=== PATIENT | male | born 1955 | race Caucasian/White ===

== ENCOUNTER 2018-07-17 19:51 | Emergency (ER) | payer MEDICARE ==
[~2018-07-17] VITALS: Ht 185.4 cm; Wt 108.9 kg
[~2018-07-17 19:51] MED LIST: ATENOLOL50 MG PO; AUGMENTIN 875-1 EACH PO; CARAFATE1 GM/10 ML PO; GABAPENTIN100 MG PO; HYDROCODONE-IB1 EAC2; KEFLEX250 MG; KEFLEX500 MG PO; PANTOPRAZOLE SO40 MG PO; RANITIDINE HCL150 MG PO; SUCRALFATE1 GM PO; ULTRAM50 MG PO; VICOPROFEN 2001 EACH PO
--- OUTSIDE RECORDS SUMMARY | 2018-07-17 19:54 | XMS REPORT ---
Author Author [facility] Address Unknown Phone Unavailable Care Team Providers Care Cafe Server Name Role Phone Ray JIMENEZ Unavailable Unavailable Payers Payer Name Policy Type Policy Number Effective Date Expiration Date Problems This patient has no known problems. Allergies, Adverse Reactions, Alerts Allergy Name Allergy Type Status Severity Reaction(s) Onset Date Inactive Date Treating Clinician Comments bismuth subsalicylate DA Active 2018-06-17 00:00:00 propoxyphene DA Active SV 2018-06-17 00:00:00 aspirin DA Active SV 2018-06-17 00:00:00 methylprednisolone DA Active U 2018-06-17 00:00:00 tramadol DA Active SV 2018-06-17 00:00:00 diphenhydramine DA Active SV 2018-06-17 00:00:00 bismuth subsalicylate DA Active SV 2018-04-25 00:00:00 propoxyphene DA Active SV 2018-04-25 00:00:00 aspirin DA Active SV 2018-04-25 00:00:00 methylprednisolone DA Active U 2018-04-25 00:00:00 tramadol DA Active SV 2018-04-25 00:00:00 diphenhydramine DA Active SV 2018-04-25 00:00:00 bismuth subsalicylate DA Active SV 2017-10-14 00:00:00 propoxyphene DA Active SV 2017-10-14 00:00:00 aspirin DA Active SV 2017-10-14 00:00:00 methylprednisolone DA Active U 2017-10-14 00:00:00 tramadol DA Active SV 2017-10-14 00:00:00 diphenhydramine DA Active SV 2017-10-14 00:00:00 Medications This patient has no known medications. Results Test Description Test Time Test Comments Text Results Atomic Results Result Comments CHEST SINGLE (PORTABLE) 2018-04-16 18:47:00 [place] [address] Patient Name: NIKKO HOLLAND MR #: [id number] : 1955 Age/Sex: 63/M Req #: [id number] Adm Physician: Ordered by: BRANNON JIMENEZ MD Report #: [id number] Location: ER Room/Bed: Procedure: [id number] DX/CHEST SINGLE (PORTABLE) Exam Date: 04/16/18 Exam Time: 1824 REPORT STATUS: Signed Examination: Single AP view of the chest. COMPARISON: February 19, 2017 INDICATION: Chest pain DISCUSSION: Lines/tubes: secured entrance monitor device. Lungs: The lungs are clear. Pleura: There is no pleural effusion or pneumothorax. Heart and mediastinum: The heart and the mediastinum are unremarkable. Bones and soft tissues: No acute bony abnormalities. IMPRESSION: 1. No acute cardiopulmonary abnormalities. Signed by: Dr. Piper Anne M.D. on 04/16/2018 6:48 PM Dictated By: PIPER ANNE MD 47 Transcribed By: CHELY on 04/16/181847 COPY TO: BRANNON JIMENEZ MD KNEE LEFT THREE VIEWS 2018-04-16 18:46:00 [place] [address] Patient Name: NIKKO HOLLAND MR #: [id number] : 1955 Age/Sex: 63/M Req #: [id number] Adm Physician: Ordered by: BRANNON JIMENEZ MD Report #: [id number] Location: ER Room/Bed: Procedure: DX/KNEE LEFT THREE VIEWS Exam Date: 04/16/18 Exam Time: 1824 REPORT STATUS: Signed Exam: Left knee 3 views History: Pain Comparison: None. Findings: No fracture or malalignment. Left total knee arthroplasty. Hardware intact. No abnormal soft tissue calcification or soft tissue defect. Impression: No acute osseous abnormality Intact left total knee arthroplasty. Signed by: Dr. Piper Anne M.D. on 04/16/2018 6:47 PM Dictated By: PIPER ANNE MD 46 Transcribed By: CHELY on 04/16/181846 COPY TO: BRANNON JIMENEZ MD CT BRAIN WO 2018-04-16 18:32:00 [place] [address] Patient Name: NIKKO HOLLAND MR #: [id number] : 1955 Age/Sex: 63/M Req #: [id number] Adm Physician: Ordered by: BRANNON JIMENEZ MD Report #: [id number] Location: ER Room/Bed: Procedure: [id number] CT/CT BRAIN WO Exam Date: 04/16/18 Exam Time: 1811 REPORT STATUS: Signed History:63-year-old male with heart attack resulting in fall Comparison studies: 02/19/2017 Technique: Axial images were obtained from the skull base to the vertex. Coronal and sagittal images reconstructed from the axial data. Dose modulation, iterative reconstruction, and/or weight based adjustment of the mA/kV was utilized to reduce the radiation dose to as low as reasonably achievable. Intravenous contrast: None Findings: Scalp/skull: No abnormalities. Extra-axial spaces: No masses. No fluid collections. Brain sulci: Mildly prominent. Ventricles: Mild compensatory dilatation. No hydrocephalus. Parenchyma: No abnormal density. No masses, hemorrhage, acute or chronic cortical vascular insults. Sellar/suprasellar region: No abnormalities. Craniocervical junction: Pa tent foramen magnum. No Chiari one malformation. Incidental findings: Atherosclerotic calcifications in the carotid siphons . Impression: No acute abnormalities. Mild generalized cerebral volume loss. A preliminary report was given by Neuroradiology fellow Dr. Solorzano at 6:36 PM on 04/16/2018. I have reviewed the images and agree with findings in the preliminary report. Signed by: Dr. China St M.D. on 04/16/2018 7:43 PM Dictated By: CHINA ST MD 42 Transcribed By: CHELY on 04/16/181942 COPY TO: BRANNON JIMENEZ MD
--- OUTSIDE RECORDS SUMMARY | 2018-07-17 19:54 | XMS REPORT | Clinical Summary ---
Author Author [facility] Address Unknown Phone Unavailable Care Team Providers Care Graduate Engineer Name Role Phone Fareed Carrera DO PCP Allergies Comments Active Allergy Reactions Severity Noted Date Aspirin 05/28/2017 Diphenhydramine Hcl 05/28/2017 Morphine 05/28/2017 Tramadol 05/28/2017 Acetaminophen 05/28/2017 Medications End Date Status Medication Sig Dispensed Refills Start Date Active aspirin (ECOTRIN) 325 MG Take 325 mg 0 enteric coated tablet by mouth once 7 daily. Active cetirizine (ZyrTEC) 10 MG Take 10 mg by 0 tablet mouth daily 7 as needed. Active docusate sodium (COLACE) Take 100 mg 0 100 MG capsule by mouth 2 7 (two) times a day. Active DULoxetine (CYMBALTA) 20 Take 20 mg by 0 MG capsule mouth 2 (two) 7 times a day. Active enoxaparin (LOVENOX) 40 INJECT 0.4ML 0 mg/0.4 mL syringe SUBUTANEOUSLY 7 DAILY FOR 10 DAYS Active furosemide (LASIX) 20 mg Take 20 mg by 2 tablet mouth 2 (two) 7 times a day. Active gabapentin (NEURONTIN) Take 600 mg 0 600 mg tablet by mouth 3 7 (three) times a day. Active gabapentin (NEURONTIN) Take 100 mg 0 100 mg capsule by mouth 3 7 (three) times a day. Active HYDROcodone-acetaminophen Take 1 tablet 0 (NORCO) 10-325 mg per by mouth 7 tablet every 8 (eight) hours as needed. for pain Active keTOROlac (TORadol) 10 mg TAKE 1 TABLET 0 tablet BY MOUTH 7 EVERY 8 HOURS NEEDED PAIN SCALE 6-10 Active levoFLOXacin (LEVAQUIN) TAKE 1 TABLET 0 500 MG tablet BY MOUTH 7 EVERY DAY UNTIL FINISHED Active LORAZepam (ATIVAN) 0.5 MG Take 0.5 mg 0 tablet by mouth 7 every 8 (eight) hours as needed. for anxiety Active magnesium oxide (MAG-OX) TAKE 1 TABLET 0 400 mg tablet BY MOUTH 7 TWICE A DAY WITH MEALS. Active VIVLODEX 5 mg capsule Take 1 0 capsule by 7 mouth once daily. Active metoprolol tartrate Take 25 mg by 0 (LOPRESSOR) 25 mg tablet mouth 2 (two) 7 times a day. Active predniSONE (DELTASONE) 20 TAKE 2 0 mg tablet TABLETS BY 7 MOUTH EVERY 12 HOURS FOR 5 DAYS Active ranitidine (ZANTAC) 150 Take 150 mg 3 MG tablet by mouth 7 every 12 (twelve) hours. Active CARAFATE 100 mg/mL TAKE 2 0 suspension TEASPOONSFUL 7 BY MOUTH BEFORE MEALS AND AT BEDTIME Active sulfamethoxazole-trimetho Take 1 tablet 0 prim (BACTRIM DS) 800-160 by mouth 2 7 mg per tablet (two) times a day. Active tamsulosin (FLOMAX) 0.4 Take 0.4 mg 1 mg capsule,extended by mouth 7 release 24hr nightly. Active Problems Problem Noted Date Chronic nasal congestion 05/28/2017 Sleep apnea, obstructive 05/28/2017 Nasal septal deviation 05/28/2017 Nasal turbinate hypertrophy 05/28/2017 Encounters Care Team Description Date Type Specialty Sales, Forrest Foster MD Vasovagal syncope (Primary Dx); Right upper quadrant abdominal pain; Alcoholic intoxication without complication (HCC) 07/05/2018 Emergency Emergency Medicine after 07/16/2017 Social History Date Tobacco Use Types Packs/Day Years Used Former Smoker Comments: quit 10 years Alcohol Use Drinks/Week oz/Week Comments No Sex Assigned at Date Recorded Not on file Industry Job Start Date Occupation Not on file Not on file Not on file Travel End Travel History Travel Start No recent travel history available. Last Filed Vital Signs Time Taken Vital Sign Reading 07/05/2018 6:45 PM DRAPERY HANGER Blood Pressure 119/76 07/05/2018 6:45 PM DR[facility]ERY HANGER Pulse 105 - Temperature - 07/05/2018 6:45 PM DRAPERY HANGER Respiratory Rate 18 07/05/2018 6:45 PM DRAPERY HANGER Oxygen Saturation 91% - Inhaled Oxygen - Concentration - Weight - 07/05/2018 4:15 PM DRAPERY HANGER Height 185.4 cm (6' 1") - Body Mass Index - Plan of Treatment Health Maintenance Due Date Last Done Comments COLON CANCER SCREENING 2005 SHINGRIX VACCINE (1 of 2) 2005 ZOSTER VACCINE 2015 INFLUENZA VACCINE 03/12/2018 Procedures Comments Procedure Name Priority Date/Time Associated Diagnosis XR CHEST 1 VW PORTABLE STAT 07/05/2018 5:[address] RENAL STONE PROTOCOL STAT 07/05/2018 5:15 PM DRAPERY HANGER CREATINE KINASE, TOTAL Routine 07/05/2018 (CPK) 4:15 PM DRAPERY HANGER B NATRIURETIC PEPTIDE Routine 07/05/2018 4:15 PM DRAPERY HANGER TROPONIN Routine 07/05/2018 4:15 PM DRAPERY HANGER ALCOHOL LEVEL, BLOOD Routine 07/05/2018 4:15 PM DRAPERY HANGER ESTIMATED GFR Routine 07/05/2018 4:15 PM DRAPERY HANGER COMPREHENSIVE METABOLIC Routine 07/05/2018 PANEL 4:15 PM DRAPERY HANGER PARTIAL THROMBOPLASTIN Routine 07/05/2018 TIME (PTT) 4:15 PM DRAPERY HANGER PROTHROMBIN TIME WITH INR Routine 07/05/2018 4:15 PM DRAPERY HANGER HC COMPLETE BLD COUNT Routine 07/05/2018 W/AUTO DIFF 4:15 PM DRAPERY HANGER ECG ED PRELIMINARY Routine 07/05/2018 INTERPRETATION 4:13 PM DRAPERY HANGER after 07/16/2017 Results * XR Chest 1 Vw Portable (07/05/2018 5:16 PM DRAPERY HANGER) Narrative Performed At EXAMINATION:XR CHEST 1 VW PORTABLE HM [facility]IANT CLINICAL HISTORY:syncope COMPARISON:To previous study from 05/14/2016 IMPRESSION: tourist information assistant is present. The heart is normal in appearance, and the lungs are clear. [id number] Procedure Note Interface, Radiology Results Incoming - 07/05/2018 5:20 PM DRAPERY HANGER EXAMINATION: XR CHEST 1 VW PORTABLE CLINICAL HISTORY: syncope COMPARISON: To previous study from 05/14/2016 IMPRESSION: tourist information assistant is present. The heart is normal in appearance, and the lungs are clear. [facility]-[id number] Performing Organization Address City/State/Zipcode Phone Number [facility] [phone] [place] [address] * CT Renal Stone Protocol (07/05/2018 5:15 PM DRAPERY HANGER) Narrative Performed At EXAMINATION:[facility] CLINICAL HISTORY:right flank pain TECHNIQUE: Noncontrast images of the abdomen and pelvis were obtained without intravenous iodinated contrast. The lack of intravenous contrast limits assessment of the solid organs. CT imaging was performed with iterative reconstruction technique and/or automated exposure control to reduce radiation dose. COMPARISON: CT abdomen pelvis from November 05, 2015 FINDINGS: LOWER THORAX: Bibasilar atelectasis. ABDOMEN: Kidneys: No renal calculi or obstructing ureteral calculi. No hydronephrosis. Liver: The liver is mildly enlarged and measures 20 cm in craniocaudal dimension. Gallbladder: The gallbladder is normal. Spleen: The spleen is not enlarged. Pancreas: The pancreas is unremarkable. Adrenal Glands: Mild thickening of the left adrenal gland. Abdominal Aorta: Calcification of the abdominal aorta is noted. No aneurysm. Nodes: No enlarged retroperitoneal or mesenteric lymphadenopathy. Bowel: No bowel obstruction or inflammatory changes of the large or small bowel. Appendix is normal. Ascites: No ascites or fluid collections. Small fat-containing umbilical hernia. PELVIS: Pelvis: No mass, fluid collection or significant adenopathy. No bladder calculi. Bones: Degenerative changes of the osseous structures. No suspicious lesions. IMPRESSION: No acute abnormalities. Hepatomegaly. [id number] Procedure Note Interface, Radiology Results Incoming - 07/05/2018 5:51 PM DRAPERY HANGER EXAMINATION: CT RENAL STONE PROTOCOL CLINICAL HISTORY: right flank pain TECHNIQUE: Noncontrast images of the abdomen and pelvis were obtained without intravenous iodinated contrast. The lack of intravenous contrast limits assessment of the solid organs. CT imaging was performed with iterative reconstruction technique and/or automated exposure control to reduce radiation dose. COMPARISON: CT abdomen pelvis from November 05, 2015 FINDINGS: LOWER THORAX: Bibasilar atelectasis. ABDOMEN: Kidneys: No renal calculi or obstructing ureteral calculi. No hydronephrosis. Liver: The liver is mildly enlarged and measures 20 cm in craniocaudal dimension. Gallbladder: The gallbladder is normal. Spleen: The spleen is not enlarged. Pancreas: The pancreas is unremarkable. Adrenal Glands: Mild thickening of the left adrenal gland. Abdominal Aorta: Calcification of the abdominal aorta is noted. No aneurysm. Nodes: No enlarged retroperitoneal or mesenteric lymphadenopathy. Bowel: No bowel obstruction or inflammatory changes of the large or small bowel. Appendix is normal. Ascites: No ascites or fluid collections. Small fat-containing umbilical hernia. PELVIS: Pelvis: No mass, fluid collection or significant adenopathy. No bladder calculi. Bones: Degenerative changes of the osseous structures. No suspicious lesions. IMPRESSION: No acute abnormalities. Hepatomegaly. [id number] Performing Organization Address City/[facility]/Zipcode Phone Number [facility] [address] [place] [address] * Estimated GFR (07/05/2018 4:15 PM DRAPERY HANGER) Estimated GFR 82 mL/min/1.73 m2 [facility] Comment: [facility] CatergoryUnitsInte rpretation G1 >=90 Normal or high G2 60-89Mildly decreased G2m18-58 Mildly to moderately decreased [id number] Moderately to severely decreased G4 15-29Severely decreased G5 <15Kidney failure The eGFR was calculated using the Chronic Kidney Disease Epidemiology Collaboration (CKD-EPI) equation. Interpretation is based on recommendations of the National Kidney Foundation-Kidney Disease Outcomes Quality Initiative (NKF-KDOQI) published in 2014. Specimen Plasma specimen Performing Organization Address City/State/Zipcode Phone Number [facility] [address] [place] [id number] PATHOLOGY AND GENOMIC MEDICINE [facility] [address] [address] * Troponin (07/05/2018 4:15 PM DRAPERY HANGER) Troponin <0.10 0.00 - 0.10 ng/mL [facility] Comment: [facility] 0.11 - 1.49 ng/mlMay indicate increased risk of acute coronary syndrome. >=1.5 ng/ml Consistent with acute myocardial infarction. The diagnostic value of a single normal or non-diagnostic result is questionable.Serial samples at 2-6 hour intervals are required to rule out acute myocardial injury. Specimen Plasma specimen Performing Organization Address [facility] Phone Number [facility] [place] [id number] [address] PATHOLOGY AND GENOMIC MEDICINE [address] * Partial thromboplastin time, activated (07/05/2018 4:15 PM DRAPERY HANGER) PTT 29.1 23.0 - 36.0 sec [facility] Comment: [facility] PTT therapeutic range for unfractionated heparin is 61.0-112.0 seconds which corresponds to Anti-Xa 0.3-0.7 U/ml. Specimen Blood Performing Organization Address [facility] Hospital[facility] Phone Number [place] [phone] [place] [address] PATHOLOGY AND [facility] MEDICINE [address] * Prothrombin time with INR (07/05/2018 4:15 PM DRAPERY HANGER) Prothrombin time 12.2 11.5 - 14.5 sec [facility] INR 0.9 [facility] Comment: [facility] The International Normalized Ratio (INR) is a therapeutic monitoring tool for patients who are stable on oral anticoagulant therapy. An INR of 2.0-3.0 is suggested for deep vein thrombosis/pulmonary embolism. Specimen Blood Performing Organization Address [facility] Hospital[facility] Phone Number [place] [address] [address] [facility] [place] [address] PATHOLOGY AND GENOMIC MEDICINE [address] * CBC with platelet and differential (07/05/2018 4:15 PM DRAPERY HANGER) WBC 7.30 4.50 - 11.00 k/uL [facility] RBC 4.19 (L) 4.40 - 6.00 m/uL [facility] HGB 13.5 (L) 14.0 - 18.0 g/dL [facility] HCT 39.1 (L) 41.0 - 51.0 % [facility] MCV 93.3 82.0 - 100.0 fL [facility] MCH 32.2 27.0 - 34.0 pg [facility] MCHC 34.5 31.0 - 37.0 g/dL [facility] RDW - SD 42.5 37.0 - 55.0 fL [facility] MPV 9.5 8.8 - 13.2 fL [facility] Platelet count 256 150 - 400 k/uL [facility] Neutrophils 46.9 39.0 - 69.0 % [facility] Lymphocytes 39.0 25.0 - 45.0 % [facility] Monocytes 10.1 (H) 0.0 - 10.0 % [facility] Eosinophils 2.7 0.0 - 5.0 % [facility] Basophils 0.8 0.0 - 1.0 % [facility] Immature granulocytes 0.5 0.0 - 1.0 % [facility] Specimen Blood Performing Organization Address City/[facility] Phone Number [facility] DEPARTMENT OF [address] [place] [address]. [place] [address] PATHOLOGY AND [facility] [address] * B natriuretic peptide (07/05/2018 4:15 PM DRAPERY HANGER) BNP 7 0 - 100 pg/mL [facility] Performing Organization Address [facility] Phone Number [facility] DEPARTMENT [address] [place] [address] PATHOLOGY AND [facility] [address] * Creatine kinase, total (CPK) (07/05/2018 4:15 PM DRAPERY HANGER) Creatine kinase 168 35 - 200 U/L [facility] Specimen Plasma specimen Performing Organization Address [facility] Phone Number [facility] DEPARTMENT OF [address] [place] [address]. [place] [address] PATHOLOGY AND [facility] [address] * Alcohol level, blood (07/05/2018 4:15 PM DRAPERY HANGER) Alcohol 85.6 (HH) mg/dL [facility]: [facility] Normal None Detected Legal Intoxication in [place]80 mg/dL (0.08%) - Whole Blood Toxic Concentration 200 mg/dL (0.2%) Potentially Fatal3 50 - 500 mg/dL (0.35 - 0.5%) ALC results called to and read back by DANY MCCLOUD RN-[facility] at16:55 07/05/2018 by CAQ. Alcohol percent 0.086 (HH) % [facility] Specimen Plasma specimen Performing Organization Address City/[facility] Phone Number [facility] [place] [address] [address] [place] [phone] PATHOLOGY AND GENOMIC MEDICINE [facility] [address] [address] * Comprehensive metabolic panel (07/05/2018 4:15 PM DRAPERY HANGER) Sodium 138 135 - 148 mEq/L [facility] Potassium 4.2 3.5 - 5.0 mEq/L [facility] Chloride 98 (L) 99 - 109 mEq/L [facility] CO2 23 (L) 24 - 31 mEq/L [facility] Anion gap 17@ANIO (H) 7 - 15 mEq/L [facility] BUN 17 8 - 24 mg/dL [facility] Creatinine 0.98 0.70 - 1.20 mg/dL [facility] Glucose 90 65 - 99 mg/dL [facility] Calcium 9.3 8.6 - 10.6 mg/dL [facility] Protein 7.2 6.3 - 8.2 g/dL [facility] Albumin 3.6 3.5 - 5.0 g/dL [facility] A/G ratio 1.0 0.7 - 3.8 [facility] Alkaline phosphatase 91 30 - 115 U/L [facility] AST 24 15 - 46 U/L [facility] ALT 24 10 - 55 U/L [facility] Total bilirubin <0.3 0.2 - 1.2 mg/dL [facility] Specimen Plasma specimen Performing Organization Address City/State/Zipcode Phone Number [facility] [place] [address] [address] PATHOLOGY AND GENOMIC MEDICINE [facility] [address] * ECG ED Preliminary Interpretation - Not an Order (07/05/2018 4:13 PM DRAPERY HANGER) Narrative Performed At Forrest Sales MD 07/05/20186:03 PM ECG ED Preliminary Interpretation - Not an Order Performed by: Forrest Sales MD Authorized by: Forrest Sales MD ECG reviewed by ED Physician in the absence of a trailer driver: yes Previous ECG: Previous ECG:Unavailable Interpretation: Interpretation: abnormal Rate: ECG rate:108 ECG rate assessment: tachycardic Rhythm: Rhythm: sinus rhythm Ectopy: Ectopy: none QRS: QRS axis:Normal Conduction: Conduction: abnormal Abnormal conduction: LAFB ST segments: ST segments:Normal Other findings: Other findings: LAE after 07/16/2017 Insurance Payer Benefit Subscriber ID Type Phone Address Plan / Group MEDICARE MEDICARE xxxxxxxxxxx Medicare [place], [place] PART A AND B Advance Directives Patient has advance care planning documents on file. For more information, jacy childress contact: Cachorro Sanon [address] [place] [address]
--- OUTSIDE RECORDS SUMMARY | 2018-07-17 19:54 | XMS REPORT | Continuity of Care Document ---
Author Author [facility] Interface Address Unknown Phone Unavailable Problems Problem Status Onset Date Classification Date Reported Comments Source Chest pain Active 09/25/2014 Problem 04/17/2018 [facility] Syncopal episodes Active 09/25/2014 Problem 04/17/2018 [facility] Seizure Active Problem 04/17/2018 [facility] Syncope and collapse Active Problem 04/17/2018 [facility] Medications Medication Details Route Status Patient Instructions Ordering Provider Order Date Source Sucralfate (Carafate) 1 Gm/10 Ml Oral.susp, 1 Gm Oral Before Meals And At Bedtime Active 02/20/2017 [facility] Cephalexin (Keflex) 250 Mg Capsule, 250 Mg Every 4 Hours Active 11/25/2012 [facility] Cephalexin Monohydrate (Keflex) 500 Mg Capsule, 500 Mg Oral Twice A Day Active 11/25/2012 [facility] Hydrocodone/Ibuprofen (Hydrocodone-Ibuprofen 2.5-200) 1 Each Tablet, 2.5 - 200 Mg Every 4-6 Hours Active 11/25/2012 [facility] Atenolol 50 Mg Tablet Daily Active [facility] Gabapentin 100 Mg Capsule Three Times A Day Active [facility] Pantoprazole Sodium (Protonix) 40 Mg Tablet. Daily Active [facility] Ranitidine Hcl 150 Mg Tablet Every 12 Hours Active [facility] Sucralfate 1 Gm Tablet Daily Active [facility] Allergies, Adverse Reactions, Alerts Substance Category Reaction Severity Reaction type Status Date Reported Comments Source diphenhydramine HCl SWELLING Unknown Allergy to Substance Active 01/31/2017 [facility] Ceftriaxone Unknown Allergy to Substance Active 06/23/2017 [facility] Morphine RASH Intermediate Allergy to Substance Active 04/16/2018 [facility] Hydrocodone ITCHING, RASH Mild Allergy to Substance Active 04/16/2018 [facility] Aspirin anaphylactic Severe Allergy to Substance Active 04/16/2018 [facility] Acetaminophen SWELLING Unknown Allergy to Substance Active 04/16/2018 [facility] Tramadol ITCHING, RASH Mild Allergy to Substance Active 04/16/2018 [facility] Immunizations Immunization Date Given Site Status Last Updated Comments Source Results Order Name Results Value Reference Range Date Interpretation Comments Source Automated urine sediment leukocyte count by microscopy (number/high power field) Automated urine sediment leukocyte count by microscopy (number/high power field) NONE 0 - 5 04/16/2018 [facility] Bacteria detection in urine sediment by light microscopy Bacteria detection in urine sediment by light microscopy NONE NONE 04/16/2018 [facility] Epithelial cells detection in urine sediment by light microscopy Epithelial cells detection in urine sediment by light microscopy NONE NONE 04/16/2018 [facility] Erythrocytes detection in urine sediment by light microscopy Erythrocytes detection in urine sediment by light microscopy NONE 0 - 5 04/16/2018 [facility] Specific gravity of Urine by Test strip Specific gravity of Urine by Test strip 1.005 1.010 - 1.025 04/16/2018 [facility] Urine clarity Urine clarity CLEAR CLEAR 04/16/2018 [facility] Urine color determination Urine color determination YELLOW YELLOW 04/16/2018 [facility] Urine erythrocytes detection Urine erythrocytes detection NEGATIVE NEGATIVE 04/16/2018 [facility] Urine glucose detection Urine glucose detection NEGATIVE NEGATIVE 04/16/2018 [facility] Urine ketones detection by automated test strip Urine ketones detection by automated test strip NEGATIVE NEGATIVE 04/16/2018 [facility] Urine leukocyte esterase detection by dipstick Urine leukocyte esterase detection by dipstick NEGATIVE NEGATIVE 04/16/2018 [facility] Urine nitrite detection Urine nitrite detection NEGATIVE NEGATIVE 04/16/2018 [facility] Urine pH measurement by automated test strip Urine pH measurement by automated test strip 5 5 - 7 04/16/2018 [facility] Urine protein measurement by test strip (mass/volume) Urine protein measurement by test strip (mass/volume) NEGATIVE NEGATIVE 04/16/2018 [facility] Urine total bilirubin measurement (mass/volume) Urine total bilirubin measurement (mass/volume) NEGATIVE NEGATIVE 04/16/2018 [facility] Urine urobilinogen measurement by test strip (mass/volume) Urine urobilinogen measurement by test strip (mass/volume) 0.2 0.2 - 1 04/16/2018 [facility] Automated blood basophil count (count/volume) Automated blood basophil count (count/volume) 0.1 0.0 - 0.1 04/16/2018 [facility] Automated blood basophil count as percentage of total leukocytes Automated blood basophil count as percentage of total leukocytes 0.8 0.0 - 1.0 04/16/2018 [facility] Automated blood eosinophil count Automated blood eosinophil count 0.2 0.0 - 0.4 04/16/2018 [facility] Automated blood eosinophil count as percentage of total leukocytes Automated blood eosinophil count as percentage of total leukocytes 2.6 0.0 - 6.0 04/16/2018 [facility] Automated blood hematocrit (volume fraction) Automated blood hematocrit (volume fraction) 38.1 38.2 - 49.6 04/16/2018 [facility] Automated blood lymphocyte count as percentage ot total leukocytes Automated blood lymphocyte count as percentage ot total leukocytes 31.9 18.0 - 39.1 04/16/2018 [facility] Automated blood monocyte count as percentage of total leukocytes Automated blood monocyte count as percentage of total leukocytes 10.4 4.4 - 11.3 04/16/2018 [facility] Automated blood neutrophil count Automated blood neutrophil count 4.1 2.1 - 6.9 04/16/2018 [facility] Automated blood platelet count (count/volume) Automated blood platelet count (count/volume) 245 140 - 360 04/16/2018 [facility] Automated blood segmented neutrophil count as percentage of total leukocytes Automated blood segmented neutrophil count as percentage of total leukocytes 54.0 38.7 - 80.0 04/16/2018 [facility] Automated erythrocyte mean corpuscular hemoglobin (mass per erythrocyte) Automated erythrocyte mean corpuscular hemoglobin (mass per erythrocyte) 32.8 28 - 32 04/16/2018 [facility] Automated erythrocyte mean corpuscular hemoglobin concentration measurement (mass/volume) Automated erythrocyte mean corpuscular hemoglobin concentration measurement (mass/volume) 34.6 31 - 35 04/16/2018 [facility] Automated erythrocyte mean corpuscular volume Automated erythrocyte mean corpuscular volume 94.5 81 - 99 04/16/2018 [facility] Blood erythrocytes automated count (number/volume) Blood erythrocytes automated count (number/volume) 4.03 4.3 - 5.7 04/16/2018 [facility] Blood hemoglobin measurement (moles/volume) Blood hemoglobin measurement (moles/volume) 13.2 14.0 - 18.0 04/16/2018 [facility] Blood leukocytes automated count (number/volume) Blood leukocytes automated count (number/volume) 7.67 4.8 - 10.8 04/16/2018 [facility] Blood lymphocytes count (number/volume) Blood lymphocytes count (number/volume) 2.5 1.0 - 3.2 04/16/2018 [facility] Blood monocytes automated count (number/volume) Blood monocytes automated count (number/volume) 0.8 0.2 - 0.8 04/16/2018 [facility] Estimated glomerular filtration rate (GFR) determination Estimated glomerular filtration rate (GFR) determination null 60 04/16/2018 [facility] Glucose measurement Glucose measurement 95 74 - 118 04/16/2018 [facility] Plasma globulin measurement (mass/volume) Plasma globulin measurement (mass/volume) 3.3 2.3 - 3.5 04/16/2018 [facility] Serum or plasma alanine aminotransferase measurement (enzymatic activity/volume) Serum or plasma alanine aminotransferase measurement (enzymatic activity/volume) 24 0 - 55 04/16/2018 [facility] Serum or plasma albumin measurement (mass/volume) Serum or plasma albumin measurement (mass/volume) 3.6 3.5 - 5.0 04/16/2018 [facility] Serum or plasma albumin/globulin mass ratio Serum or plasma albumin/globulin mass ratio 1.1 0.8 - 2.0 04/16/2018 [facility] Serum or plasma alkaline phosphatase measurement (enzymatic activity/volume) Serum or plasma alkaline phosphatase measurement (enzymatic activity/volume) 79 40 - 150 04/16/2018 [facility] Serum or plasma anion gap Serum or plasma anion gap 15.6 8 - 16 04/16/2018 [facility] Serum or plasma calcium measurement (mass/volume) Serum or plasma calcium measurement (mass/volume) 8.9 8.4 - 10.2 04/16/2018 [facility] Serum or plasma carbon dioxide, total measurement (moles/volume) Serum or plasma carbon dioxide, total measurement (moles/volume) 18 22 - 29 04/16/2018 [facility] Serum or plasma chloride measurement (moles/volume) Serum or plasma chloride measurement (moles/volume) 103 98 - 107 04/16/2018 [facility] Serum or plasma creatine kinase MB measurement (mass/volume) Serum or plasma creatine kinase MB measurement (mass/volume) 44.70 0 - 5.0 04/16/2018 [facility] Serum or plasma creatine kinase measurement (enzymatic activity/volume) Serum or plasma creatine kinase measurement (enzymatic activity/volume) 203 30 - 200 04/16/2018 [facility] Serum or plasma creatinine measurement (mass/volume) Serum or plasma creatinine measurement (mass/volume) 0.95 0.72 - 1.25 04/16/2018 [facility] Serum or plasma potassium measurement (moles/volume) Serum or plasma potassium measurement (moles/volume) 3.6 3.5 - 5.1 04/16/2018 [facility] Serum or plasma protein measurement (mass/volume) Serum or plasma protein measurement (mass/volume) 6.9 6.5 - 8.1 04/16/2018 [facility] Serum or plasma sodium measurement (moles/volume) Serum or plasma sodium measurement (moles/volume) 133 136 - 145 04/16/2018 [facility] Serum or plasma total bilirubin measurement (mass/volume) Serum or plasma total bilirubin measurement (mass/volume) 0.4 0.2 - 1.2 04/16/2018 [facility] Serum or plasma urea nitrogen measurement (mass/volume) Serum or plasma urea nitrogen measurement (mass/volume) 17 7 - 26 04/16/2018 [facility] Serum or plasma urea nitrogen/creatinine mass ratio Serum or plasma urea nitrogen/creatinine mass ratio 18 6 - 25 04/16/2018 [facility] Troponin I measurement by highly sensitive enzyme immunoassay Troponin I measurement by highly sensitive enzyme immunoassay null 0 - 0.300 04/16/2018 [facility] Red Cell Distribution Width 14.2 11.7 - 14.4 04/16/2018 [facility] IM GRANULOCYTES % 0.3 0.0 - 1.0 04/16/2018 [facility] Absolute Immature Granulocyte (auto 0.02 0 - 0.1 04/16/2018 [facility] Aspartate Amino Transf (AST/SGOT) 19 5 - 34 04/16/2018 [facility] Vital Signs Vital Sign Value Date Comments Source Encounters Location Location Details Encounter Type Encounter Number Reason For Visit Attending Provider ADM Date DC Date Status Source Departed Emergency Room [id number] MICHELE DELA CRUZ MD 06/23/2017 06/23/2017 [facility] Departed Emergency Room [id number] BRANNON JIMENEZ MD 04/16/2018 04/16/2018 [facility] Procedures Procedure Code Date Perfomer Comments Source Computed tomography of brain without radiopaque contrast [id number] 04/16/2018 [facility]
[2018-07-17] MEDS ORDERED: ONDANSETRON HCL INJ 2 MG/ML VIAL IV STA (20:09)
[2018-07-17] MEDS ORDERED: PANTOPRAZOLE 40 MG 10ML VIAL IV STA (20:09)
[2018-07-17] MEDS ORDERED: MULTIVITAMINS- 12 INJECTION 10 ML, FOLIC ACID MDV 5 MG, THIAMINE HCL INJ 100 MG in SODI... IV ONE (20:15)
[2018-07-17 20:17] LABS: BASOPHILS % 0.5 % (0.0-1.0); EOSINOPHILS # (AUTO) 0.2 (0.0-0.4); EOSINOPHILS % 3.8 % (0.0-6.0); HEMATOCRIT 38.2 % (38.2-49.6); HEMOGLOBIN 13.2 g/dL (14.0-18.0); LYMPHOCYTES % 35.7 % (18.0-39.1); MEAN CORPUSCULAR HEMOGLOBIN 32.7 pg (28-32); MEAN CORPUSCULAR HGB CONC 34.6 g/dL (31-35); MEAN CORPUSCULAR VOLUME 94.6 fL (81-99); MONOCYTES # (AUTO) 0.5 (0.2-0.8); MONOCYTES % 8.8 % (4.4-11.3); NEUTROPHILS # (AUTO) 2.8 (2.1-6.9); NEUTROPHILS % 50.8 % (38.7-80.0); PLATELET COUNT 269 x10e3/uL (140-360); RED BLOOD COUNT 4.04 x10e6/uL (4.3-5.7); RED CELL DISTRIBUTION WIDTH 12.6 % (11.7-14.4)
[2018-07-17 20:46] LABS: ALANINE AMINOTRANSFERASE 21 IU/L (0-55); ALBUMIN 3.7 g/dL (3.5-5.0); ALKALINE PHOSPHATASE 81 IU/L (40-150); AMYLASE 18 U/L (25-125); BLOOD UREA NITROGEN 12 mg/dL (7-26); BUN/CREATININE RATIO 13 (6-25); CALCIUM 9.3 mg/dL (8.4-10.2); CARBON DIOXIDE 18 mmol/L (22-29); CHLORIDE 105 mmol/L (98-107); CREATINE KINASE 136 IU/L (30-200); CREATININE, SERUM 0.92 mg/dL (0.72-1.25); EST GLOMERULAR FILTRATION RATE > 60 ML/MIN (60-); GLUCOSE 92 mg/dL (74-118); LIPASE 16 U/L (8-78); SODIUM 137 mmol/L (136-145)
--- NOTE | 2018-07-17 20:58 | Diagnostic Imaging Report ---
Examination: Single AP view of the chest. COMPARISON: 04/16/18. INDICATION: Cough. Difficulty breathing. DISCUSSION: Lines/tubes: Loop recorder again projected on the left hemithorax. Lungs: The lungs are clear. Pleura: There is no pleural effusion or pneumothorax. Heart and mediastinum: The heart and the mediastinum are unremarkable. Bones and soft tissues: No acute bony abnormalities. Degenerative changes in the thoracic spine. IMPRESSION: 1. No acute thoracic abnormality. Signed by: Dr. Sissy Mackay M.D. on 07/17/2018 8:55 PM
[2018-07-17 20:59] LABS: CLARITY,URINE CLEAR (CLEAR); COLOR,URINE YELLOW (YELLOW); KETONES,URINE NEGATIVE (NEGATIVE); LEUKOCYTE ESTERASE ,URINE NEGATIVE (NEGATIVE); NITRITE,URINE NEGATIVE (NEGATIVE); PROTEIN,URINE DIPSTICK NEGATIVE (NEGATIVE)
[2018-07-17 21:00] LABS: AMPHETAMINES SCREEN,URINE NEGATIVE (NEGATIVE); BILIRUBIN,URINE NEGATIVE (NEGATIVE); PHENCYCLIDINE SCREEN,URINE NEGATIVE (NEGATIVE); URINE UROBILINOGEN 0.2 mg/dL (0.2 - 1)
[2018-07-17 21:03] LABS: BENZODIAZEPINES SCREEN,URINE POSITIVE (NEGATIVE)
[2018-07-17 21:08] LABS: BACTERIA,URINE RARE /HPF; EPITHELIAL CELLS,URINE RARE /LPF; WBC,URINE (MAN) 0-5 /HPF (0-5)
[2018-07-18 00:32] LABS: CREATINE KINASE 109 IU/L (30-200)
[2018-07-18 00:43] VITALS: BP 140/84
== END 2018-07-18 00:56 | disposition home or self-care (01) ==
LOC: ER 19:51
DX: R07.89 Other chest pain (principal); R10.13 Epigastric pain; K29.20 Alcoholic gastritis without bleeding; K21.9 Gastro-esophageal reflux disease without esophagitis; K46.9 Unspecified abdominal hernia without obstruction or gangrene; I10 Essential (primary) hypertension; E78.5 Hyperlipidemia, unspecified; G40.909 Epilepsy, unspecified, not intractable, without status epilepticus
CPT/HCPCS: 36415; 71045; 80053; 80307; 80320; 81001; 82150; 82550; 82553; 83690; 84484; 85025; 93005; 99284; J2405; J3411; J7030

== ENCOUNTER 2019-04-03 20:48 | Emergency (ER) | payer MEDICARE, OTHER ==
[~2019-04-03] VITALS: Ht 185.4 cm; Wt 108.9 kg
--- OUTSIDE RECORDS SUMMARY | 2019-04-03 20:51 | XMS REPORT | Continuity of Care Document ---
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 Role Phone [employer] Unavailable Unavailable Problems Problem Status Onset Date Classification Date Reported Comments Source Chest pain Active 09/25/2014 Problem 07/18/2018 [facility] Syncope Active 09/25/2014 Problem 07/18/2018 [facility] Seizure Active Problem 07/18/2018 [facility] Syncope and collapse Active Problem 07/18/2018 [facility] Medications Medication Details Route Status Patient Instructions Ordering Provider Order Date Source Sucralfate (Carafate) 1 Gm/10 Ml Oral.susp, 1 Gm Oral Before Meals And At Bedtime Active 02/20/2017 [facility] Sucralfate (Carafate) 1 Gm/10 Ml Oral.susp, 1 Gm Oral Before Meals And At Bedtime Active 02/20/2017 [facility] Cephalexin (Keflex) 250 Mg Capsule, 250 Mg Every 4 Hours Active 11/25/2012 [facility] Cephalexin Monohydrate (Keflex) 500 Mg Capsule, 500 Mg Oral Twice A Day Active 11/25/2012 [facility] Hydrocodone/Ibuprofen (Hydrocodone-Ibuprofen 2.5-200) 1 Each Tablet, 2.5 - 200 Mg Every 4-6 Hours Active 11/25/2012 [facility] Atenolol 50 Mg Tablet Daily Active [facility] Gabapentin 100 Mg Capsule Three Times A Day Active [facility] Pantoprazole Sodium (Protonix) 40 Mg Tablet. Daily Active [facility] Ranitidine Hcl 150 Mg Tablet Every 12 Hours Active [facility] Sucralfate 1 Gm Tablet Daily Active [facility] Atenolol 50 Mg Tablet Daily Active [facility] Gabapentin 100 Mg Capsule Three Times A Day Active [facility] Pantoprazole Sodium (Protonix) 40 Mg Tablet. Daily Active [facility] Ranitidine Hcl 150 Mg Tablet Every 12 Hours Active [facility] Sucralfate 1 Gm Tablet Daily Active [facility] Allergies, Adverse Reactions, Alerts Substance Category Reaction Severity Reaction type Status Date Reported Comments Source diphenhydramine HCl SWELLING Unknown Allergy to Substance Active 01/31/2017 [facility] Ceftriaxone Unknown Allergy to Substance Active 06/23/2017 [facility] Morphine RASH Intermediate Allergy to Substance Active 04/16/2018 [facility] Hydrocodone ITCHING, RASH Mild Allergy to Substance Active 04/16/2018 [facility] Aspirin anaphylactic Severe Allergy to Substance Active 04/16/2018 [facility] Acetaminophen SWELLING Unknown Allergy to Substance Active 04/16/2018 [facility] Tramadol ITCHING, RASH Mild Allergy to Substance Active 04/16/2018 [facility] Immunizations No Data Provided for This Section Results Order Name Results Value Reference Range Date Interpretation Comments Source Serum or plasma creatine kinase measurement (enzymatic activity/volume) 109 30 - 200 07/17/2018 [facility] Serum or plasma creatine kinase MB measurement (mass/volume) 22.00 0 - 5.0 07/17/2018 [facility] Troponin I measurement by highly sensitive enzyme immunoassay < 0.001 0 - 0.300 07/17/2018 [facility] Urine color determination YELLOW YELLOW 07/17/2018 [facility] Urine clarity CLEAR CLEAR 07/17/2018 [facility] Specific gravity of Urine by Test strip 1.010 1.010 - 1.025 07/17/2018 [facility] Urine pH measurement by automated test strip 5 5 - 7 07/17/2018 [facility] Urine leukocyte esterase detection by dipstick NEGATIVE NEGATIVE 07/17/2018 [facility] Urine nitrite detection NEGATIVE NEGATIVE 07/17/2018 [facility] Urine protein measurement by test strip (mass/volume) NEGATIVE NEGATIVE 07/17/2018 [facility] Urine glucose detection NEGATIVE NEGATIVE 07/17/2018 [facility] Urine ketones detection by automated test strip NEGATIVE NEGATIVE 07/17/2018 [facility] Urine opiates screening test NEGATIVE NEGATIVE 07/17/2018 [facility] Barbiturates screen, urine NEGATIVE NEGATIVE 07/17/2018 [facility] Urine phencyclidine detection by screening method NEGATIVE NEGATIVE 07/17/2018 [facility] Urine amphetamines detection by screen method > 1000 ng/mL NEGATIVE NEGATIVE 07/17/2018 [facility] Urine Methamphetamines Screen NEGATIVE NEGATIVE 07/17/2018 [facility] Urine benzodiazepines detection by screening method POSITIVE NEGATIVE 07/17/2018 [facility] Urine cocaine measurement (mass/volume) NEGATIVE NEGATIVE 07/17/2018 [facility] Urine cannabinoids detection by screening method NEGATIVE NEGATIVE 07/17/2018 [facility] Urine methadone screen NEGATIVE NEGATIVE 07/17/2018 [facility] Urine urobilinogen measurement by test strip (mass/volume) 0.2 0.2 - 1 07/17/2018 [facility] Urine total bilirubin measurement (mass/volume) NEGATIVE NEGATIVE 07/17/2018 [facility] Urine erythrocytes detection NEGATIVE NEGATIVE 07/17/2018 [facility] Automated urine sediment leukocyte count by microscopy (number/high power field) 0-5 0 - 5 07/17/2018 [facility] Erythrocytes detection in urine sediment by light microscopy NONE 0 - 5 07/17/2018 [facility] Bacteria detection in urine sediment by light microscopy RARE NONE 07/17/2018 [facility] Epithelial cells detection in urine sediment by light microscopy RARE NONE 07/17/2018 [facility] Blood leukocytes automated count (number/volume) 5.46 4.8 - 10.8 07/17/2018 [facility] Blood erythrocytes automated count (number/volume) 4.04 4.3 - 5.7 07/17/2018 [facility] Blood hemoglobin measurement (moles/volume) 13.2 14.0 - 18.0 07/17/2018 [facility] Automated blood hematocrit (volume fraction) 38.2 38.2 - 49.6 07/17/2018 [facility] Automated erythrocyte mean corpuscular volume 94.6 81 - 99 07/17/2018 [facility] Automated erythrocyte mean corpuscular hemoglobin (mass per erythrocyte) 32.7 28 - 32 07/17/2018 [facility] Automated erythrocyte mean corpuscular hemoglobin concentration measurement (mass/volume) 34.6 31 - 35 07/17/2018 [facility] RDW BldCo-Rto 12.6 11.7 - 14.4 07/17/2018 [facility] Automated blood platelet count (count/volume) 269 140 - 360 07/17/2018 [facility] Automated blood segmented neutrophil count as percentage of total leukocytes 50.8 38.7 - 80.0 07/17/2018 [facility] Automated blood lymphocyte count as percentage ot total leukocytes 35.7 18.0 - 39.1 07/17/2018 [facility] Automated blood monocyte count as percentage of total leukocytes 8.8 4.4 - 11.3 07/17/2018 [facility] Automated blood eosinophil count as percentage of total leukocytes 3.8 0.0 - 6.0 07/17/2018 [facility] Automated blood basophil count as percentage of total leukocytes 0.5 0.0 - 1.0 07/17/2018 [facility] IM GRANULOCYTES % 0.4 0.0 - 1.0 07/17/2018 [facility] Automated blood neutrophil count 2.8 2.1 - 6.9 07/17/2018 [facility] Blood lymphocytes count (number/volume) 2.0 1.0 - 3.2 07/17/2018 [facility] Blood monocytes automated count (number/volume) 0.5 0.2 - 0.8 07/17/2018 [facility] Automated blood eosinophil count 0.2 0.0 - 0.4 07/17/2018 [facility] Automated blood basophil count (count/volume) 0.0 0.0 - 0.1 07/17/2018 [facility] Absolute Immature Granulocyte (auto 0.02 0 - 0.1 07/17/2018 [facility] Serum or plasma sodium measurement (moles/volume) 137 136 - 145 07/17/2018 [facility] Serum or plasma potassium measurement (moles/volume) 4.0 3.5 - 5.1 07/17/2018 [facility] Serum or plasma chloride measurement (moles/volume) 105 98 - 107 07/17/2018 [facility] Serum or plasma carbon dioxide, total measurement (moles/volume) 18 22 - 29 07/17/2018 [facility] Serum or plasma anion gap 18.0 8 - 16 07/17/2018 [facility] Serum or plasma urea nitrogen measurement (mass/volume) 12 7 - 26 07/17/2018 [facility] Serum or plasma creatinine measurement (mass/volume) 0.92 0.72 - 1.25 07/17/2018 [facility] Serum or plasma urea nitrogen/creatinine mass ratio 13 6 - 25 07/17/2018 [facility] Estimated glomerular filtration rate (GFR) determination > 60 60 07/17/2018 [facility] Glucose measurement 92 74 - 118 07/17/2018 [facility] Serum or plasma calcium measurement (mass/volume) 9.3 8.4 - 10.2 07/17/2018 [facility] Serum or plasma total bilirubin measurement (mass/volume) 0.3 0.2 - 1.2 07/17/2018 [facility] Aspartate Amino Transf (AST/SGOT) 20 5 - 34 07/17/2018 [facility] Serum or plasma alanine aminotransferase measurement (enzymatic activity/volume) 21 0 - 55 07/17/2018 [facility] Serum or plasma protein measurement (mass/volume) 7.5 6.5 - 8.1 07/17/2018 [facility] Serum or plasma albumin measurement (mass/volume) 3.7 3.5 - 5.0 07/17/2018 [facility] Plasma globulin measurement (mass/volume) 3.8 2.3 - 3.5 07/17/2018 [facility] Serum or plasma albumin/globulin mass ratio 1.0 0.8 - 2.0 07/17/2018 [facility] Serum or plasma alkaline phosphatase measurement (enzymatic activity/volume) 81 40 - 150 07/17/2018 [facility] Serum or plasma amylase measurement (enzymatic activity/volume) 18 25 - 125 07/17/2018 [facility] Serum or plasma lipase measurement (enzymatic activity/volume) 16 8 - 78 07/17/2018 [facility] Serum or plasma ethanol measurement (mass/volume) 201.9 0.0 - 10.0 07/17/2018 [facility] Automated urine sediment leukocyte count by microscopy (number/high power field) Automated urine sediment leukocyte count by microscopy (number/high power field) NONE 0 - 5 04/16/2018 [facility] Bacteria detection in urine sediment by light microscopy Bacteria detection in urine sediment by light microscopy NONE NONE 04/16/2018 [facility] Epithelial cells detection in urine sediment by light microscopy Epithelial cells detection in urine sediment by light microscopy NONE NONE 04/16/2018 [facility] Erythrocytes detection in urine sediment by light microscopy Erythrocytes detection in urine sediment by light microscopy NONE 0 - 5 04/16/2018 [facility] Specific gravity of Urine by Test strip Specific gravity of Urine by Test strip 1.005 1.010 - 1.025 04/16/2018 [facility] Urine clarity Urine clarity CLEAR CLEAR 04/16/2018 [facility] Urine color determination Urine color determination YELLOW YELLOW 04/16/2018 [facility] Urine erythrocytes detection Urine erythrocytes detection NEGATIVE NEGATIVE 04/16/2018 [facility] Urine glucose detection Urine glucose detection NEGATIVE NEGATIVE 04/16/2018 [facility] Urine ketones detection by automated test strip Urine ketones detection by automated test strip NEGATIVE NEGATIVE 04/16/2018 [facility] Urine leukocyte esterase detection by dipstick Urine leukocyte esterase detection by dipstick NEGATIVE NEGATIVE 04/16/2018 [facility] Urine nitrite detection Urine nitrite detection NEGATIVE NEGATIVE 04/16/2018 [facility] Urine pH measurement by automated test strip Urine pH measurement by automated test strip 5 5 - 7 04/16/2018 [facility] Urine protein measurement by test strip (mass/volume) Urine protein measurement by test strip (mass/volume) NEGATIVE NEGATIVE 04/16/2018 [facility] Urine total bilirubin measurement (mass/volume) Urine total bilirubin measurement (mass/volume) NEGATIVE NEGATIVE 04/16/2018 [facility] Urine urobilinogen measurement by test strip (mass/volume) Urine urobilinogen measurement by test strip (mass/volume) 0.2 0.2 - 1 04/16/2018 [facility] Automated blood basophil count (count/volume) Automated blood basophil count (count/volume) 0.1 0.0 - 0.1 04/16/2018 [facility] Automated blood basophil count as percentage of total leukocytes Automated blood basophil count as percentage of total leukocytes 0.8 0.0 - 1.0 04/16/2018 [facility] Automated blood eosinophil count Automated blood eosinophil count 0.2 0.0 - 0.4 04/16/2018 [facility] Automated blood eosinophil count as percentage of total leukocytes Automated blood eosinophil count as percentage of total leukocytes 2.6 0.0 - 6.0 04/16/2018 [facility] Automated blood hematocrit (volume fraction) Automated blood hematocrit (volume fraction) 38.1 38.2 - 49.6 04/16/2018 [facility] Automated blood lymphocyte count as percentage ot total leukocytes Automated blood lymphocyte count as percentage ot total leukocytes 31.9 18.0 - 39.1 04/16/2018 [facility] Automated blood monocyte count as percentage of total leukocytes Automated blood monocyte count as percentage of total leukocytes 10.4 4.4 - 11.3 04/16/2018 [facility] Automated blood neutrophil count Automated blood neutrophil count 4.1 2.1 - 6.9 04/16/2018 [facility] Automated blood platelet count (count/volume) Automated blood platelet count (count/volume) 245 140 - 360 04/16/2018 [facility] Automated blood segmented neutrophil count as percentage of total leukocytes Automated blood segmented neutrophil count as percentage of total leukocytes 54.0 38.7 - 80.0 04/16/2018 [facility] Automated erythrocyte mean corpuscular hemoglobin (mass per erythrocyte) Automated erythrocyte mean corpuscular hemoglobin (mass per erythrocyte) 32.8 28 - 32 04/16/2018 [facility] Automated erythrocyte mean corpuscular hemoglobin concentration measurement (mass/volume) Automated erythrocyte mean corpuscular hemoglobin concentration measurement (mass/volume) 34.6 31 - 35 04/16/2018 [facility] Automated erythrocyte mean corpuscular volume Automated erythrocyte mean corpuscular volume 94.5 81 - 99 04/16/2018 [facility] Blood erythrocytes automated count (number/volume) Blood erythrocytes automated count (number/volume) 4.03 4.3 - 5.7 04/16/2018 [facility] Blood hemoglobin measurement (moles/volume) Blood hemoglobin measurement (moles/volume) 13.2 14.0 - 18.0 04/16/2018 [facility] Blood leukocytes automated count (number/volume) Blood leukocytes automated count (number/volume) 7.67 4.8 - 10.8 04/16/2018 [facility] Blood lymphocytes count (number/volume) Blood lymphocytes count (number/volume) 2.5 1.0 - 3.2 04/16/2018 [facility] Blood monocytes automated count (number/volume) Blood monocytes automated count (number/volume) 0.8 0.2 - 0.8 04/16/2018 [facility] Estimated glomerular filtration rate (GFR) determination Estimated glomerular filtration rate (GFR) determination >60 60 04/16/2018 [facility] Glucose measurement Glucose measurement 95 74 - 118 04/16/2018 [facility] Plasma globulin measurement (mass/volume) Plasma globulin measurement (mass/volume) 3.3 2.3 - 3.5 04/16/2018 [facility] Serum or plasma alanine aminotransferase measurement (enzymatic activity/volume) Serum or plasma alanine aminotransferase measurement (enzymatic activity/volume) 24 0 - 55 04/16/2018 [facility] Serum or plasma albumin measurement (mass/volume) Serum or plasma albumin measurement (mass/volume) 3.6 3.5 - 5.0 04/16/2018 [facility] Serum or plasma albumin/globulin mass ratio Serum or plasma albumin/globulin mass ratio 1.1 0.8 - 2.0 04/16/2018 [facility] Serum or plasma alkaline phosphatase measurement (enzymatic activity/volume) Serum or plasma alkaline phosphatase measurement (enzymatic activity/volume) 79 40 - 150 04/16/2018 [facility] Serum or plasma anion gap Serum or plasma anion gap 15.6 8 - 16 04/16/2018 [facility] Serum or plasma calcium measurement (mass/volume) Serum or plasma calcium measurement (mass/volume) 8.9 8.4 - 10.2 04/16/2018 [facility] Serum or plasma carbon dioxide, total measurement (moles/volume) Serum or plasma carbon dioxide, total measurement (moles/volume) 18 22 - 29 04/16/2018 [facility] Serum or plasma chloride measurement (moles/volume) Serum or plasma chloride measurement (moles/volume) 103 98 - 107 04/16/2018 [facility] Serum or plasma creatine kinase MB measurement (mass/volume) Serum or plasma creatine kinase MB measurement (mass/volume) 44.70 0 - 5.0 04/16/2018 [facility] Serum or plasma creatine kinase measurement (enzymatic activity/volume) Serum or plasma creatine kinase measurement (enzymatic activity/volume) 203 30 - 200 04/16/2018 [facility] Serum or plasma creatinine measurement (mass/volume) Serum or plasma creatinine measurement (mass/volume) 0.95 0.72 - 1.25 04/16/2018 [facility] Serum or plasma potassium measurement (moles/volume) Serum or plasma potassium measurement (moles/volume) 3.6 3.5 - 5.1 04/16/2018 [facility] Serum or plasma protein measurement (mass/volume) Serum or plasma protein measurement (mass/volume) 6.9 6.5 - 8.1 04/16/2018 [facility] Serum or plasma sodium measurement (moles/volume) Serum or plasma sodium measurement (moles/volume) 133 136 - 145 04/16/2018 [facility] Serum or plasma total bilirubin measurement (mass/volume) Serum or plasma total bilirubin measurement (mass/volume) 0.4 0.2 - 1.2 04/16/2018 [facility] Serum or plasma urea nitrogen measurement (mass/volume) Serum or plasma urea nitrogen measurement (mass/volume) 17 7 - 26 04/16/2018 [facility] Serum or plasma urea nitrogen/creatinine mass ratio Serum or plasma urea nitrogen/creatinine mass ratio 18 6 - 25 04/16/2018 [facility] Troponin I measurement by highly sensitive enzyme immunoassay Troponin I measurement by highly sensitive enzyme immunoassay <0.001 0 - 0.300 04/16/2018 [facility] Red Cell Distribution Width 14.2 11.7 - 14.4 04/16/2018 [facility] IM GRANULOCYTES % 0.3 0.0 - 1.0 04/16/2018 [facility] Absolute Immature Granulocyte (auto 0.02 0 - 0.1 04/16/2018 [facility] Aspartate Amino Transf (AST/SGOT) 19 5 - 34 04/16/2018 [facility] Pathology Reports No Data Provided for This Section Diagnostic Reports No Data Provided for This Section Consultation Notes No Data Provided for This Section Discharge Summaries No Data Provided for This Section History and Physicals No Data Provided for This Section Vital Signs No Data Provided for This Section Encounters Location Location Details Encounter Type Encounter Number Reason For Visit Attending Provider ADM Date DC Date Status Source Departed Emergency Room [id number] MICHELE DELA CRUZ MD 06/23/2017 06/23/2017 [facility] Departed Emergency Room [id number] BRANNON JIMENEZ MD 04/16/2018 04/16/2018 [facility] Departed Emergency Room [id number] MUNA MERIDA MD 07/17/2018 07/18/2018 [facility] Procedures Procedure Code Date Perfomer Comments Source Computed tomography of brain without radiopaque contrast [id number] 04/16/2018 [facility] Assessment and Plan No Data Provided for This Section Plan of Care Plan of Care Date Source Discharge Date 07/18/18 12:56am Disposition HOME, SELF-CARE Condition at Discharge Stable Instructions/Education Provided Heartburn Hiatal Hernia Forms Provided Work/School Excuse Prescriptions See Medication Section Referrals LATANYA SEVILLA DO Order Date: Call for an appointment Address: [address] [place] [address] YENY SMITH MD Order Date: [facility] Address: [address] [place] [address] Additional Instructions/Education FOLLOW-UP WITH DR SMITH FOR YOUR HIATAL HERNIA PLANNED TAKE PROTONIX PRESCRIBED AVOID ALCOHOL, IT IS CAUSING INFLAMMATION AND IN YOUR STOMACH AND GIVING YOU PAIN 07/18/2018 [facility] Discharge Date 04/16/18 8:51pm Disposition HOME, SELF-CARE Condition at Discharge Stable Instructions/Education Provided Chest Pain - Noncardiac Forms Provided Work/School Excuse Prescriptions See Medication Section Referrals ZEHRA RIVERA MD Address: [address] [place] [address] Additional Instructions/Education 1. Please f/u with Dr. Rivera 2. Per Dr. Rivera- your recent cardiac cath was normal, and your pain is not cardiac in nature, please see him as an outpatient on Saturday, return to the ED if your symptoms do not improve. 04/16/2018 [facility] Social History Social History Date Source Social History Problem Response Recorded Date/Time Onset Date Status Hx Psychiatric Problems No 02/20/2017 1:24am Not Applicable Not Applicable Hx Eating Disorder No 02/20/2017 1:24am Not Applicable Not Applicable Hx Substance Use Disorder No 02/20/2017 1:24am Not Applicable Not Applicable Hx Depression No 02/20/2017 1:24am Not Applicable Not Applicable Hx Alcohol Use Y - "almost every day" 02/20/2017 1:24am Not Applicable Not Applicable Hx Substance Use Treatment No 02/20/2017 1:24am Not Applicable Not Applicable Hx Physical Abuse No 02/20/2017 1:24am Not Applicable Not Applicable Smoking Status Start Date Stop Date Former smoker 07/18/2018 [facility] Family History No Data Provided for This Section Advance Directives Order Name Results Value Date Source Advance Directives Advance Directives Directive Response Recorded Date/Time Does the patient have an advance directive? No 02/20/17 1:24am If yes, is advance directive on file with [facility]? No 02/20/17 1:24am If not on file with [facility] will patient provide a copy? No 06/23/17 1:49pm Do you have a Directive to Physician? No 07/17/18 10:31pm Do you have a Medical Power of Market Asset Protection Manager? No 07/17/18 10:31pm Do you have an out of hospital Do Not Resuscitate Order? No 07/17/18 10:31pm Do you have any special needs we should be aware of? No 07/17/18 10:31pm Do you have a support person here with you today? Yes 07/17/18 10:31pm Did patient receive Notice of Privacy Practices? Yes 07/17/18 10:31pm Did patient receive patient rights and responsibilities? Yes 07/17/18 10:31pm 07/18/2018 [facility] Advance Directives Advance Directives Directive Response Recorded Date/Time Does the patient have an advance directive? No 02/20/17 1:24am If yes, is advance directive on file with [facility]? No 02/20/17 1:24am If not on file with [facility] will patient provide a copy? No 06/23/17 1:49pm 04/16/2018 [facility] Functional Status No Data Provided for This Section
[2019-04-03 21:10] LABS: BASOPHILS % 0.6 % (0.0-1.0); EOSINOPHILS # (AUTO) 0.1 (0.0-0.4); EOSINOPHILS % 2.3 % (0.0-6.0); HEMATOCRIT 37.5 % (38.2-49.6); LYMPHOCYTES # (AUTO) 2.4 (1.0-3.2); LYMPHOCYTES % 39.1 % (18.0-39.1); MEAN CORPUSCULAR HEMOGLOBIN 33.5 pg (28-32); MEAN CORPUSCULAR HGB CONC 34.7 g/dL (31-35); MEAN CORPUSCULAR VOLUME 96.6 fL (81-99); MONOCYTES # (AUTO) 0.6 (0.2-0.8); MONOCYTES % 9.4 % (4.4-11.3); NEUTROPHILS % 48.4 % (38.7-80.0); PLATELET COUNT 253 x10e3/uL (140-360); RED BLOOD COUNT 3.88 x10e6/uL (4.3-5.7); RED CELL DISTRIBUTION WIDTH 12.9 % (11.7-14.4)
[2019-04-03 21:27] LABS: ALANINE AMINOTRANSFERASE 22 IU/L (0-55); ALBUMIN 3.5 g/dL (3.5-5.0); ALBUMIN/GLOBULIN RATIO 1.3 (0.8-2.0); ALKALINE PHOSPHATASE 78 IU/L (40-150); ANION GAP 17.3 mmol/L (8-16); BLOOD UREA NITROGEN 13 mg/dL (7-26); BUN/CREATININE RATIO 16 (6-25); CALCIUM 9.1 mg/dL (8.4-10.2); CARBON DIOXIDE 20 mmol/L (22-29); CHLORIDE 104 mmol/L (98-107); CREATINE KINASE 72 IU/L (30-200); CREATININE, SERUM 0.83 mg/dL (0.72-1.25); EST GLOMERULAR FILTRATION RATE > 60 ML/MIN (60-); GLUCOSE 73 mg/dL (74-118); POTASSIUM 3.3 mmol/L (3.5-5.1); SODIUM 138 mmol/L (136-145)
[2019-04-03] MEDS ORDERED: ALBUTEROL/IPRATROPIUM 3 ML NEB NEB ONE (21:30)
[2019-04-03] MEDS ORDERED: LORAZEPAM INJ 2 MG/ML VIAL IV ONE (21:30)
--- NOTE | 2019-04-03 21:30 | NUR ---
pt back from radiology where rapid response was called due to seizure-like activity. pt appeared post-ictal on arrival, medicated with ativan, then pt began coughing, sat up in bed stating he could not breathe. md aware and back to room to re-eval. pt sitting up high fowlers, coughing, obeys commands.
--- NOTE | 2019-04-03 21:38 | Diagnostic Imaging Report ---
CT BRAIN WO HISTORY: Syncope COMPARISON: Head CT 04/16/18 Technique: Noncontrast axial scans were obtained from skull base to the vertex. Coronal and sagittal reconstructions obtained from the axial data. One or more of the following dose reduction techniques were used: Automated exposure control, adjustment of the mA and/or kV according to patient size, and/or utilization of iterative reconstruction technique. DISCUSSION: Scalp/Skull: Unremarkable. Brain sulci: Mildly prominent. Ventricles: Compensatory dilatation. Extra-axial spaces: No masses or fluid collections. Carotid siphon calcifications are present. Parenchyma: Mild bilateral deep white matter hypodensity is likely chronic microvascular ischemic change. Otherwise, no masses, hemorrhage, or large vascular territory acute infarct. Dural sinuses: No abnormal densities. Sellar/Suprasellar region: Intact. Skull base: Intact. Incidental findings: None. IMPRESSION: 1. No acute intracranial abnormalities. 2. Mild supratentorial chronic microvascular ischemic change. Mild generalized cerebral volume loss. Signed by: Dr. Juan Carlos Monroy M.D. on 04/03/2019 9:34 PM
--- NOTE | 2019-04-03 21:50 | NUR ---
pt asking if he had a seizure. nebulizer given per RT. awake alert skin w/d resp nonlab. nad noted. reassurance given
--- NOTE | 2019-04-03 23:18 | Diagnostic Imaging Report ---
EXAMINATION: CHEST SINGLE (PORTABLE) INDICATION: Cough COMPARISON: Chest radiograph 04/16/2018 FINDINGS: AP view TUBES and LINES: None. LUNGS: Lungs are well inflated. Lungs are clear. There is mild prominence of the central pulmonary vasculature, consistent with pulmonary venous congestion. PLEURA: No pleural effusion or pneumothorax. HEART AND MEDIASTINUM: Cardiac size is mildly enlarged. BONES AND SOFT TISSUES: No acute osseous lesion. Soft tissues are unremarkable. Cardiac loop recorder projects over the left chest. UPPER ABDOMEN: No free air under the diaphragm. IMPRESSION: Mild cardiomegaly and central pulmonary vascular congestion. Signed by: Almas Hadley DO on 04/03/2019 11:15 PM
--- NOTE | 2019-04-03 23:20 | Diagnostic Imaging Report ---
EXAM: Abdomen Radiograph 1 View INDICATION: Cough COMPARISON: Chest radiograph 04/03/2019 FINDINGS: No lines or tubes. The lower heart appears mildly enlarged. Normal volume of stool in the colon. No dilated loops of small bowel. No abnormal abdominal calcifications.. No abnormal soft tissue masses. No pneumoperitoneum. Degenerative changes in the lumbar spine and pelvis. Cardiac loop recorder projects in the left lower chest. IMPRESSION: No acute abdominal radiographic abnormality. Mild cardiomegaly. Signed by: Almas Hadley DO on 04/03/2019 11:17 PM
[2019-04-03 23:23] LABS: BILIRUBIN,URINE NEGATIVE (NEGATIVE); CLARITY,URINE CLEAR (CLEAR); COLOR,URINE YELLOW (YELLOW); KETONES,URINE NEGATIVE (NEGATIVE); LEUKOCYTE ESTERASE ,URINE NEGATIVE (NEGATIVE); NITRITE,URINE NEGATIVE (NEGATIVE); PROTEIN,URINE DIPSTICK NEGATIVE (NEGATIVE); URINE UROBILINOGEN 0.2 mg/dL (0.2 - 1)
[2019-04-03 23:56] LABS: BACTERIA,URINE FEW /HPF; WBC,URINE (MAN) 0-5 /HPF (0-5)
[2019-04-03 23:57] LABS: EPITHELIAL CELLS,URINE FEW /LPF
[2019-04-04 00:32] VITALS: BP 148/98
--- NOTE | 2019-04-04 00:35 | NUR ---
pt fully awake alert skin w/d resp nonlab. nad noted. home with sig other.
== END 2019-04-04 00:35 | disposition home or self-care (01) ==
LOC: ER 20:48
DX: R55 Syncope and collapse (principal); J20.9 Acute bronchitis, unspecified; I10 Essential (primary) hypertension; E87.6 Hypokalemia; G40.909 Epilepsy, unspecified, not intractable, without status epilepticus; E78.5 Hyperlipidemia, unspecified; F44.5 Conversion disorder with seizures or convulsions
CPT/HCPCS: 36415; 70450; 71045; 74019; 80053; 81001; 82550; 82553; 84484; 85025; 93005; 94640; 99284; J2060

== ENCOUNTER 2019-05-21 19:01 | Emergency (ER) | payer MEDICARE, OTHER ==
[~2019-05-21] VITALS: Ht 185.4 cm; Wt 108.9 kg
[2019-05-21] MEDS ORDERED: HYDROCODONE/APAP 10MG-325MG TAB PO ONE (19:30)
--- NOTE | 2019-05-21 19:45 | NUR ---
radiology called rapid response, pt was on xray table, supine with eyes closed after moving himself to xray table. does not respond to verbal stimuli, but immediately opens eyes to sternal rub and responds appropriately. skin w/d resp nonlab, vss.
--- NOTE | 2019-05-21 20:06 | Diagnostic Imaging Report ---
Radiographs of the left knee - 3 views HISTORY: Pain COMPARISON: None available. FINDINGS: Bones: No acute displaced fracture. Osseous alignment is within normal limits. Joints: Patient status post left knee replacement with associated postsurgical change. The surgical hardware is intact without evidence of failure or loosening. Soft tissues: The soft tissues appear unremarkable. IMPRESSION: Patient status post left knee replacement with associated postsurgical change. The surgical hardware is intact without evidence of failure or loosening. Signed by: Dr. Davon Banegas M.D. on 05/21/2019 8:03 PM
--- NOTE | 2019-05-21 20:43 | NUR ---
pt awake alert skin w/d resp nonlab. nad noted. walking in hallway asking for a phone so he can call his ride.
== END 2019-05-21 21:14 | disposition home or self-care (01) ==
LOC: ER 19:01
DX: S80.02XA Contusion of left knee, initial encounter (principal); W01.0XXA Fall on same level from slipping, tripping and stumbling without subsequent striking against object, initial encounter; Y92.002 Bathroom of unspecified non-institutional (private) residence as the place of occurrence of the external cause; I10 Essential (primary) hypertension; G40.909 Epilepsy, unspecified, not intractable, without status epilepticus; E78.5 Hyperlipidemia, unspecified; R53.83 Other fatigue; Z96.652 Presence of left artificial knee joint
CPT/HCPCS: 99283

== ENCOUNTER 2019-07-21 19:19 | Emergency (ER) | payer MEDICARE, OTHER ==
[~2019-07-21] VITALS: Ht 185.4 cm; Wt 108.9 kg
[2019-07-21 20:04] LABS: BASOPHILS # (AUTO) 0.1 (0.0-0.1); BASOPHILS % 0.6 % (0.0-1.0); EOSINOPHILS # (AUTO) 0.3 (0.0-0.4); EOSINOPHILS % 3.2 % (0.0-6.0); HEMATOCRIT 35.4 % (38.2-49.6); HEMOGLOBIN 11.8 g/dL (14.0-18.0); LYMPHOCYTES # (AUTO) 3.2 (1.0-3.2); LYMPHOCYTES % 38.5 % (18.0-39.1); MEAN CORPUSCULAR HEMOGLOBIN 33.3 pg (28-32); MEAN CORPUSCULAR HGB CONC 33.3 g/dL (31-35); MONOCYTES # (AUTO) 0.7 (0.2-0.8); MONOCYTES % 8.6 % (4.4-11.3); NEUTROPHILS # (AUTO) 4.1 (2.1-6.9); NEUTROPHILS % 48.7 % (38.7-80.0); PLATELET COUNT 195 x10e3/uL (140-360); RED BLOOD COUNT 3.54 x10e6/uL (4.3-5.7); RED CELL DISTRIBUTION WIDTH 12.5 % (11.7-14.4)
[2019-07-21 20:20] LABS: ALANINE AMINOTRANSFERASE 11 IU/L (0-55); ALBUMIN 3.4 g/dL (3.5-5.0); ALBUMIN/GLOBULIN RATIO 1.4 (0.8-2.0); ALKALINE PHOSPHATASE 91 IU/L (40-150); AMYLASE 15 U/L (25-125); ANION GAP 16.5 mmol/L (8-16); BLOOD UREA NITROGEN 21 mg/dL (7-26); BUN/CREATININE RATIO 21 (6-25); CALCIUM 8.4 mg/dL (8.4-10.2); CARBON DIOXIDE 20 mmol/L (22-29); CHLORIDE 107 mmol/L (98-107); CREATINE KINASE 87 IU/L (30-200); EST GLOMERULAR FILTRATION RATE > 60 ML/MIN (60-); GLUCOSE 101 mg/dL (74-118); LIPASE 19 U/L (8-78); POTASSIUM 3.5 mmol/L (3.5-5.1); SODIUM 140 mmol/L (136-145)
[2019-07-21 20:27] LABS: INR 0.88; PROTHROMBIN TIME 12.4 seconds (11.9-14.5)
[2019-07-21 20:28] LABS: PARTIAL THROMBOPLASTIN TIME 28.1 seconds (23.8-35.5)
[2019-07-21 20:39] LABS: CLARITY,URINE CLEAR (CLEAR); COLOR,URINE YELLOW (YELLOW); LEUKOCYTE ESTERASE ,URINE NEGATIVE (NEGATIVE); NITRITE,URINE NEGATIVE (NEGATIVE); PROTEIN,URINE DIPSTICK NEGATIVE (NEGATIVE); URINE UROBILINOGEN 0.2 mg/dL (0.2 - 1)
[2019-07-21 20:40] LABS: BILIRUBIN,URINE NEGATIVE (NEGATIVE); KETONES,URINE NEGATIVE (NEGATIVE)
--- NOTE | 2019-07-21 20:52 | Diagnostic Imaging Report ---
EXAMINATION: Head CT without contrast. HISTORY:Seizure. COMPARISON:CT head from 04/03/2019. TECHNIQUE: Multidetector axial images were obtained from the foramen magnum to the vertex without contrast. The images were reconstructed using brain and bone algorithms. Thin section brain images were reformatted into coronal and sagittal planes. Dose modulation, iterative reconstruction, and/or weight based adjustment of the mA/kV was utilized to reduce the radiation dose to as low as reasonably achievable. Intravenous contrast: None IMAGE QUALITY: Acceptable. FINDINGS: Skull/scalp: No lytic or blastic. lesions. No surgical changes. Parenchyma: No abnormal density. No acute hemorrhage, mass or acute major vascular territorial infarct. Arteries: No density suggestive of thrombosis. Dural sinuses: No abnormal density suggestive of thrombosis. Ventricles: Unchanged mild compensated dilatation due to volume loss. No hydrocephalus. Extra-axial spaces: No abnormal density. Brain volume: Mild generalized cerebral volume loss. Craniocervical junction: No mass, Chiari malformation, or basilar invagination. Sella: No mass. Paranasal/mastoid sinuses: Imaged portions unremarkable. IMPRESSION: No acute intracranial abnormality. No change since CT head from 04/03/2019. Chronic findings: Mild generalized cerebral volume loss. Signed by: Dr. China St M.D. on 07/21/2019 8:48 PM
[2019-07-21 20:54] LABS: EPITHELIAL CELLS,URINE FEW /LPF; WBC,URINE (MAN) 0-5 /HPF (0-5)
[2019-07-21 21:13] LABS: AMPHETAMINES SCREEN,URINE NEGATIVE (NEGATIVE); BENZODIAZEPINES SCREEN,URINE NEGATIVE (NEGATIVE); PHENCYCLIDINE SCREEN,URINE NEGATIVE (NEGATIVE)
--- NOTE | 2019-07-21 21:42 | Diagnostic Imaging Report ---
EXAMINATION: CHEST SINGLE (PORTABLE) INDICATION: seizure COMPARISON: None FINDINGS: AP view TUBES and LINES: None. LUNGS: Lungs are well inflated. Lungs are clear. There is no evidence of pneumonia or pulmonary edema. PLEURA: No pleural effusion or pneumothorax. HEART AND MEDIASTINUM: The cardiomediastinal silhouette is unremarkable. There are atherosclerotic calcifications within the aorta. BONES AND SOFT TISSUES: No acute osseous lesion. Soft tissues are unremarkable. Loop recorder projects over the left mid chest. UPPER ABDOMEN: No free air under the diaphragm. IMPRESSION: No acute thoracic radiographic abnormality. Signed by: Almas Hadley DO on 07/21/2019 9:39 PM
[2019-07-21 22:35] LABS: CREATINE KINASE MB 6.8 ng/mL (0-5.0)
[2019-07-21 23:43] VITALS: BP 134/96
== END 2019-07-22 | disposition home or self-care (01) ==
LOC: ER 19:19
DX: F10.220 Alcohol dependence with intoxication, uncomplicated (principal); I10 Essential (primary) hypertension; G40.909 Epilepsy, unspecified, not intractable, without status epilepticus; E78.5 Hyperlipidemia, unspecified
CPT/HCPCS: 36415; 70450; 71045; 80053; 80307; 80320; 81001; 82150; 82550; 82553; 83690; 83880; 84484; 85025; 85610; 85730; 93005; 99283

== ENCOUNTER 2021-05-08 17:03 | Emergency (ER) | payer MEDICARE ==
[~2021-05-08] VITALS: Ht 188 cm; Wt 100.2 kg
[2021-05-08 18:00] LABS: BASOPHILS % 0.6 % (0.0-1.0); EOSINOPHILS # (AUTO) 0.2 (0.0-0.4); EOSINOPHILS % 2.4 % (0.0-6.0); HEMATOCRIT 30.9 % (38.2-49.6); LYMPHOCYTES # (AUTO) 1.6 (1.0-3.2); LYMPHOCYTES % 23.2 % (18.0-39.1); MEAN CORPUSCULAR HEMOGLOBIN 33.4 pg (28-32); MEAN CORPUSCULAR HGB CONC 32.4 g/dL (31-35); MEAN CORPUSCULAR VOLUME 103.3 fL (81-99); MONOCYTES # (AUTO) 0.5 (0.2-0.8); MONOCYTES % 7.7 % (4.4-11.3); NEUTROPHILS # (AUTO) 4.6 (2.1-6.9); NEUTROPHILS % 65.8 % (38.7-80.0); PLATELET COUNT 162 x10e3/uL (140-360); RED BLOOD COUNT 2.99 x10e6/uL (4.3-5.7); RED CELL DISTRIBUTION WIDTH 13.5 % (11.7-14.4)
[2021-05-08 18:15] LABS: INR 1.03; PROTHROMBIN TIME 13.7 seconds (11.9-14.5)
[2021-05-08 18:16] LABS: PARTIAL THROMBOPLASTIN TIME 31.3 seconds (23.8-35.5)
[2021-05-08 18:21] LABS: ALBUMIN/GLOBULIN RATIO 1.2 (0.8-2.0); CALCIUM 7.7 mg/dL (8.4-10.2); CREATININE, SERUM 0.84 mg/dL (0.72-1.25)
[2021-05-08 18:35] LABS: CLARITY,URINE CLEAR (CLEAR); COLOR,URINE YELLOW (YELLOW)
[2021-05-08 18:36] LABS: KETONES,URINE NEGATIVE (NEGATIVE); LEUKOCYTE ESTERASE ,URINE NEGATIVE (NEGATIVE); NITRITE,URINE NEGATIVE (NEGATIVE); PROTEIN,URINE DIPSTICK NEGATIVE (NEGATIVE); URINE UROBILINOGEN 0.2 mg/dL (0.2 - 1)
[2021-05-08 18:45] LABS: BACTERIA,URINE FEW /HPF; WBC,URINE (MAN) 0-5 /HPF (0-5)
[2021-05-08 18:46] LABS: EPITHELIAL CELLS,URINE RARE /LPF
[2021-05-08] MEDS ORDERED: HYDROCODONE/APAP 5MG-325MG TAB PO ONE (19:15)
== END 2021-05-08 20:19 | disposition home or self-care (01) ==
LOC: ER 17:37
DX: R33.9 Retention of urine, unspecified (principal); R31.9 Hematuria, unspecified; R55 Syncope and collapse; R94.31 Abnormal electrocardiogram [ECG] [EKG]; I10 Essential (primary) hypertension; G40.909 Epilepsy, unspecified, not intractable, without status epilepticus; E78.5 Hyperlipidemia, unspecified; Z87.11 Personal history of peptic ulcer disease; Z96.651 Presence of right artificial knee joint; F17.210 Nicotine dependence, cigarettes, uncomplicated
CPT/HCPCS: 36415; 51700; 70450; 80053; 81001; 85025; 85610; 85730; 86850; 86900; 93005; 99284

== ENCOUNTER 2024-05-31 00:13 | Emergency (ER) | payer MEDICARE ==
[~2024-05-31] VITALS: Ht 190.5 cm; Wt 88.5 kg
[~2024-05-31 00:13] MED LIST changes: +ATENOLOL100 MG PO; +B-1100 MG PO; +CHLORDIAZEPOXID25 MG PO; +DOXYCYCLINE HY100 MG PO; +FLOMAX0.4 MG PEG; +Folic Acid PO; +HYDROXYZINE HCL25 MG PO; +MELOXICAM7.5 MG PO; +Multivitamins/Minerals Tab PO; +SEROQUEL25 MG PEG; +SODIUM BICARBO650 MG PO; +TRAZODONE HCL50 MG PO
[2024-05-31 00:50] VITALS: TEMP 97.9
[2024-05-31 01:00] LABS: BASOPHILS % 0.8 % (0.0-1.0); EOSINOPHILS # (AUTO) 0.3 (0.0-0.4); EOSINOPHILS % 6.4 % (0.0-6.0); HEMATOCRIT 30.6 % (38.2-49.6); HEMOGLOBIN 9.7 g/dL (14.0-18.0); LYMPHOCYTES # (AUTO) 2.4 (1.0-3.2); LYMPHOCYTES % 49.4 % (18.0-39.1); MEAN CORPUSCULAR HEMOGLOBIN 30.8 pg (28-32); MEAN CORPUSCULAR HGB CONC 31.7 g/dL (31-35); MEAN CORPUSCULAR VOLUME 97.1 fL (81-99); MONOCYTES # (AUTO) 0.6 (0.2-0.8); MONOCYTES % 11.4 % (4.4-11.3); NEUTROPHILS # (AUTO) 1.5 (2.1-6.9); PLATELET COUNT 117 x10e3/uL (140-360); RED BLOOD COUNT 3.15 x10e6/uL (4.3-5.7); RED CELL DISTRIBUTION WIDTH 15.4 % (11.7-14.4); WHITE BLOOD COUNT 4.82 x10e3/uL (4.8-10.8)
[2024-05-31 01:12] LABS: ALBUMIN 3.3 g/dL (3.5-5.0); ALBUMIN/GLOBULIN RATIO 1.1 (0.8-2.0); ANION GAP 14.2 mmol/L (8-16); BILIRUBIN,TOTAL 0.3 mg/dL (0.2-1.2); CALCIUM 8.3 mg/dL (8.4-10.2); CREATININE, SERUM 0.88 mg/dL (0.72-1.25); TOTAL PROTEIN 6.3 g/dL (6.5-8.1)
[2024-05-31 01:13] LABS: POTASSIUM 3.2 mmol/L (3.5-5.1)
[2024-05-31] MEDS: DEXTROSE 50% SYRINGE 50 ML IV STA (01:38)
[2024-05-31] MEDS ORDERED: DEXTROSE 50% SYRINGE 50 ML IV ONE (01:39)
[2024-05-31 02:23] LABS: INFLUENZAE A&B ANTIGEN (RAPID) NEGATIVE (NEGATIVE)
[2024-05-31 02:24] LABS: RESPIRATORY SYNC. VIRUS NEGATIVE (NEGATIVE)
[2024-05-31 03:00] VITALS: PULSE 63; RESP 17
[2024-05-31 04:09] VITALS: BP 130/94; O2SAT 96
== END 2024-05-31 03:25 | disposition home or self-care (01) ==
LOC: ER 00:16
DX: R06.02 Shortness of breath (principal); R07.89 Other chest pain; F10.10 Alcohol abuse, uncomplicated; R94.31 Abnormal electrocardiogram [ECG] [EKG]; Z11.52 Encounter for screening for COVID-19
CPT/HCPCS: 36415; 71045; 80053; 80320; 82948; 84484; 85025; 87400; 87420; 93005; 99284; J7799; U0002

== ENCOUNTER 2024-09-21 19:49 | Emergency (ER) | payer MEDICARE ==
[~2024-09-21] VITALS: Ht 190.5 cm; Wt 88.5 kg
[2024-09-21 20:42] LABS: BASOPHILS # (AUTO) 0.1 (0.0-0.1); BASOPHILS % 0.8 % (0.0-1.0); EOSINOPHILS # (AUTO) 0.1 (0.0-0.4); EOSINOPHILS % 2.3 % (0.0-6.0); HEMATOCRIT 32.4 % (38.2-49.6); HEMOGLOBIN 10.6 g/dL (14.0-18.0); LYMPHOCYTES # (AUTO) 2.2 (1.0-3.2); LYMPHOCYTES % 35.8 % (18.0-39.1); MEAN CORPUSCULAR HEMOGLOBIN 31.5 pg (28-32); MEAN CORPUSCULAR HGB CONC 32.7 g/dL (31-35); MEAN CORPUSCULAR VOLUME 96.4 fL (81-99); MONOCYTES # (AUTO) 0.8 (0.2-0.8); MONOCYTES % 13.8 % (4.4-11.3); NEUTROPHILS # (AUTO) 2.8 (2.1-6.9); PLATELET COUNT 155 x10e3/uL (140-360); RED BLOOD COUNT 3.36 x10e6/uL (4.3-5.7); RED CELL DISTRIBUTION WIDTH 16.3 % (11.7-14.4); WHITE BLOOD COUNT 6.01 x10e3/uL (4.8-10.8)
[2024-09-21 21:07] LABS: ETHANOL 288.9 mg/dL (0.0-10.0)
[2024-09-21 21:08] LABS: ALBUMIN 3.5 g/dL (3.5-5.0); ALBUMIN/GLOBULIN RATIO 1.2 (0.8-2.0); ANION GAP 15.3 mmol/L (8-16); BILIRUBIN,TOTAL 0.7 mg/dL (0.2-1.2); CALCIUM 8.3 mg/dL (8.4-10.2); CREATININE, SERUM 2.12 mg/dL (0.72-1.25); POTASSIUM 3.3 mmol/L (3.5-5.1); TOTAL PROTEIN 6.5 g/dL (6.5-8.1)
[2024-09-21 21:13] LABS: TROPONIN I 0.008 ng/mL (0-0.300)
[2024-09-22] MEDS: SODIUM CHLORIDE 0.9% 1000ML 1,000 ML IV STA ×2 (00:14→00:15)
[2024-09-22 01:32] LABS: ANION GAP 16.2 mmol/L (8-16); CALCIUM 8.2 mg/dL (8.4-10.2); CREATININE, SERUM 1.68 mg/dL (0.72-1.25)
[2024-09-22 01:35] LABS: POTASSIUM 3.2 mmol/L (3.5-5.1)
[2024-09-22 01:48] LABS: TROPONIN I 0.003 ng/mL (0-0.300)
[2024-09-22 03:10] VITALS: PULSE 71; RESP 19; TEMP 98.8; O2SAT 96
== END 2024-09-22 03:10 | disposition home or self-care (01) ==
LOC: ER 19:57
DX: R06.02 Shortness of breath (principal); N28.9 Disorder of kidney and ureter, unspecified; R55 Syncope and collapse; F10.129 Alcohol abuse with intoxication, unspecified; I10 Essential (primary) hypertension; E78.5 Hyperlipidemia, unspecified; K21.9 Gastro-esophageal reflux disease without esophagitis; F41.9 Anxiety disorder, unspecified; R94.31 Abnormal electrocardiogram [ECG] [EKG]; Z87.19 Personal history of other diseases of the digestive system
CPT/HCPCS: 36415; 71045; 80053; 80320; 82550; 83690; 83880; 84484; 85025; 93005; 99284; J7030; 80048

== ENCOUNTER 2025-03-30 18:55 | Emergency (ER) | payer MEDICARE ==
[~2025-03-30] VITALS: Ht 190.5 cm; Wt 88.5 kg
[2025-03-30 20:55] LABS: BASOPHILS % 0.6 % (0.0-1.0); EOSINOPHILS % 2.6 % (0.0-6.0); LYMPHOCYTES % 30.5 % (18.0-39.1); MONOCYTES % 11.3 % (4.4-11.3); NEUTROPHILS % 54.8 % (38.7-80.0); RED CELL DISTRIBUTION WIDTH 17.7 % (11.7-14.4)
[2025-03-30 21:09] LABS: INR 0.84
[2025-03-30 21:18] LABS: EST GLOMERULAR FILTRATION RATE 54.0 ML/MIN (>=60)
[2025-03-30] MEDS ORDERED: IOPAMIDOL 370 MG/ML 100 ML INFUS..BTL INJ ONE (21:23)
[2025-03-30] MEDS ORDERED: ACETAMINOPHEN 325 MG TAB ONE (22:26)
[2025-03-30] MEDS: ACETAMINOPHEN 325 MG TAB PO ONE (22:33)
[2025-03-30] MEDS: SODIUM CHLORIDE 0.9% 500ML 500 ML IV ONE (22:34)
[2025-03-31 00:03] VITALS: PULSE 81; RESP 16; TEMP 98.5; O2SAT 97
== END 2025-03-31 00:40 | disposition home or self-care (01) ==
LOC: ER 19:29
DX: S41.112A Laceration without foreign body of left upper arm, initial encounter (principal); S41.111A Laceration without foreign body of right upper arm, initial encounter; S80.812A Abrasion, left lower leg, initial encounter; S80.811A Abrasion, right lower leg, initial encounter; M25.562 Pain in left knee; M25.561 Pain in right knee; F10.10 Alcohol abuse, uncomplicated; W01.0XXA Fall on same level from slipping, tripping and stumbling without subsequent striking against object, initial encounter; Y93.01 Activity, walking, marching and hiking; Y92.89 Other specified places as the place of occurrence of the external cause; I10 Essential (primary) hypertension; E78.5 Hyperlipidemia, unspecified; K21.9 Gastro-esophageal reflux disease without esophagitis; F41.9 Anxiety disorder, unspecified; R94.31 Abnormal electrocardiogram [ECG] [EKG]; Z87.19 Personal history of other diseases of the digestive system
CPT/HCPCS: 36415; 70450; 71045; 72125; 73562; 74177; 80053; 80320; 85025; 85610; 85730; 93005; 99285; J7040; Q9967

== ENCOUNTER 2025-05-13 15:43 | Emergency (ER) | payer MEDICARE ==
[~2025-05-13] VITALS: Ht 190.5 cm; Wt 88.5 kg
[2025-05-13] MEDS ORDERED: SODIUM CHLORIDE FLUSH 10 ML SYR IV PRN (16:45)
[2025-05-13 16:52] LABS: BASOPHILS % 1.2 % (0.0-1.0); EOSINOPHILS % 2.5 % (0.0-6.0); LYMPHOCYTES % 35.9 % (18.0-39.1); MONOCYTES % 9.7 % (4.4-11.3); NEUTROPHILS % 50.5 % (38.7-80.0); RED CELL DISTRIBUTION WIDTH 16.4 % (11.7-14.4)
[2025-05-13 17:06] LABS: EST GLOMERULAR FILTRATION RATE 89.0 ML/MIN (>=60)
[2025-05-13 20:19] LABS: AMPHETAMINES SCREEN,URINE NEGATIVE (NEGATIVE); CANNABINOIDS SCREEN,URINE NEGATIVE (NEGATIVE); COCAINE SCREEN,URINE NEGATIVE (NEGATIVE); METHADONE SCREEN, URINE NEGATIVE (NEGATIVE); OPIATES SCREEN,URINE NEGATIVE (NEGATIVE)
[2025-05-14 01:03] VITALS: PULSE 91; RESP 18; TEMP 98
[2025-05-14 03:46] VITALS: BP 155/97; PULSE 95; RESP 17; TEMP 98.4; O2SAT 97
== END 2025-05-14 04:01 | disposition home or self-care (01) ==
LOC: ER 16:25
DX: F10.129 Alcohol abuse with intoxication, unspecified (principal); M79.89 Other specified soft tissue disorders; I10 Essential (primary) hypertension; E78.5 Hyperlipidemia, unspecified; K21.9 Gastro-esophageal reflux disease without esophagitis; G62.9 Polyneuropathy, unspecified; F41.9 Anxiety disorder, unspecified; Z87.19 Personal history of other diseases of the digestive system; Z86.2 Personal history of diseases of the blood and blood-forming organs and certain disorders involving the immune mechanism; Z96.651 Presence of right artificial knee joint
CPT/HCPCS: 36415; 70450; 71045; 72125; 80053; 80307; 80320; 83880; 84484; 85025; 99285